=== PATIENT | male | born 1990 | race Caucasian/White ===

== ENCOUNTER → 2019-03-23 | Outpatient (CLI) | payer BC, OTHER ==
--- NOTE | 2019-03-24 02:50 | REP ---
Clinical: Lateral pain Technique: AP, lateral, bilateral oblique views right foot . Findings: The osseous structures and joint spaces are intact and normal. There is no evidence for acute fracture or dislocation. Surrounding soft tissues are unremarkable. No subcutaneous emphysema or radiodense foreign body. Impression: Age-appropriate right foot series . No acute fracture or dislocation. Electronically Signed by Sebas German MD 03/24/2019 02:41 A
== END ==
LOC: M WUC 11:42
PROVIDERS: ATTEND Physician Assistant
DX: M79.671 Pain in right foot (principal)